=== PATIENT | male | born 1970 | race Caucasian/White ===

== ENCOUNTER 2017-03-25 09:09 | Emergency (ER) | payer BC ==
[~2017-03-25] VITALS: Ht 190.5 cm; Wt 104.5 kg
[2017-03-25 09:10] VITALS: BP 122/74; PULSE 83; RESP 14; TEMP 98.2; O2SAT 99
--- NOTE | 2017-03-25 09:41 | PD ---
HPI Chief Complaint: Back/ Neck Pain or Injury Time Seen by Provider: 09:27 Travel History International Travel<30 days: No Contact w/Intl Traveler<30days: No Traveled to known affect area: No History of Present Illness HPI 46-year-old male presents to the emergency Department with complaint of right lower back pain 3 weeks with worsening last night and this morning. Says his back has been aching for 3 weeks. 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 He weeks ago he also had a fever and diarrhea and was seen and had a CT scan of his abdomen and was told he had some very small kidney stones, but doesn't know which side. He was told they were small enough they would most likely pass on their own if they did pass without any problems. He denies fevers, vomiting, abdominal pain, change in stool, dysuria, hematuria. Denies IV drug use, cancer. Denies paresthesias, loss of sensation , decreased range of motion or decreased strength to bilateral lower exudate. Denies encopresis, incontinence, saddle anesthesias. Denies radiation of pain. Pain is worse with movement. Pain is decreased while at rest. Rates pain 5/ 10. Has not taken any medication or tried any treatments to alleviate his symptoms. No known allergies. Primary care provider is Lorraine Raphael. Denies significant past medical history. Has no other medical complaints. No other modifying factors or associated signs and symptoms. PFSH Past Medical History Hx Anticoagulant Therapy: No Cardiovascular Problems: No Chemotherapy: No Cerebrovascular Accident: No Diabetes: No GERD: Yes Respiratory: No Past Surgical History Hysterectomy: No Tonsillectomy: Yes Social History Alcohol Use: Yes (3-4 times per week 3-4 drinks) Tobacco Use: No Substance Use: No Allergies-Medications (Allergen,Severity, Reaction): Coded Allergies: No Known Allergies (Unverified , 03/25/17) Reported Meds & Prescriptions Reported Meds & Active Scripts Active Robaxin (Methocarbamol) 500 Mg Tab 500 Mg PO QID PRN Ibuprofen 800 Mg Tab 800 Mg PO Q6HR PRN Review of Systems Except as stated in HPI: all other systems reviewed are Neg Physical Exam Narrative GENERAL: Well-nourished, well-developed male patient, in no acute distress; afebrile, nontoxic-appearing SKIN: Warm and dry. HEAD: Atraumatic. Normocephalic. EYES: Pupils equal and round. No scleral icterus. No injection or drainage. ENT: Mucosa pink and moist. Airway patent. NECK: Trachea midline. CARDIOVASCULAR: Regular rate and rhythm. No murmur appreciated. RESPIRATORY: No accessory muscle use. Sounds clear and equal bilaterally. No retractions or tachypnea. GASTROINTESTINAL: Abdomen soft, non-tender, nondistended. Positive bowel sounds. No hepato-splenomegaly, or palpable masses. No guarding. MUSCULOSKELETAL: Bilateral lower extremities supple and non-tense with 2+ pedal pulses and sensory intact; with full range of motion and 5/5 strength. Active dorsiflexion and extension of bilateral feet. Right straight leg raise is positive for low back pain. Ambulatory in room with normal gait. Sitting up in bed at 90. No obvious deformities. No clubbing. No cyanosis. No edema. BACK: No midline point tenderness on palpation of the lumbar or thoracic spine. Tenderness on palpation of right thoracic mid back area. No obvious deformities. NEUROLOGICAL: Awake and alert. Oriented 3. No obvious cranial nerve deficits. Motor grossly within normal limits. Normal speech. Moves all extremities. 5/5 strength to all extremities. Sensory intact. PSYCHIATRIC: Appropriate mood and affect; insight and judgment normal. Data Data Last Documented VS Vital Signs Date Time Temp Pulse Resp B/P (MAP) Pulse Ox O2 Delivery O2 Flow Rate FiO2 03/25/17 09:25 16 03/25/17 09:10 98.2 83 122/74 (90) 99 Orders Orders Ketorolac Inj (Toradol Inj) (03/25/17 09:45) Orphenadrine Inj (Norflex Inj) (03/25/17 09:45) Ed Discharge Order (03/25/17 09:45) [facility] Medical Decision Making Medical Screen Exam Complete: Yes Emergency Medical Condition: Yes Medical Record Reviewed: Yes Differential Diagnosis Back strain, muscle spasm of back, kidney stone Narrative Course 46-year-old male physical exam consistent with possible muscle strain from of Right lower back. He had a CT scan 3 weeks ago and was told he had kidney stones but according to the patient they were small enough that if the past he probably would not feel pain. He does not know what side the kidney stones were on. He has no urinary complaints at this time. He is afebrile and nontoxic-appearing. He denies fever, vomiting. 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 He has a basketball game later on today and a [address] I did discuss labs, urinalysis and repeat CT scan to r/o kidney stones and he declined at this time. I did discuss reasons to return to the emergency department and he verbalized understanding and agreement. I will treat the patient for musculoskeletal back pain. Toradol and Norflex administered in the ER. Ibuprofen and Robaxin prescribed for home. Instructed patient to follow up with primary care provider. Patient verbalizes understanding and agreement with treatment plan. Patient is medically cleared and stable for discharge. Discussed reasons to return to the emergency department. Patient agrees with treatment plan. The patients vital signs are stable and the patient is stable for outpatient follow- up and treatment. Patient discharged home, stable and in no acute distress. Diagnosis Primary Impression: Acute right-sided low back pain Qualified Codes: M54.5 - Low back pain Referrals: Primary Care Physician Patient Instructions: Acute Low Back Pain (ED), General Instructions, Kidney Stones (ED), Low Back Strain (ED) Additional Instructions: Tylenol or ibuprofen as directed and as needed for pain Robaxin as prescribed and as needed for muscle spasms Heating pad and/or ice to affected area to reduce pain Avoid aggravating activities; increase activity as tolerated Follow-up with primary care provider Return to emergency department immediately with worsening of symptoms Med/Other Pt SpecificInfo: Prescription(s) given Scripts Methocarbamol (Robaxin) 500 Mg Tab 500 MG PO QID Y for MUSCLE SPASM, #30 TAB 0 Refills Prov: Josy Toussaint 03/25/17 Ibuprofen (Ibuprofen) 800 Mg Tab 800 MG PO Q6HR Y for PAIN, #30 TAB 0 Refills Prov: Josy Toussaint 03/25/17 Disposition: 01 DISCHARGE HOME Condition: Stable Josy Toussaint Mar 25, 2017 09:41
[2017-03-25] MEDS ORDERED: ROBA500T PO (09:44)
[2017-03-25] MEDS ORDERED: IBUP1TAB7 PO (09:44)
[2017-03-25] MEDS ORDERED: KETOROLAC TROMETHAMINE 60 MG/2 ML (IM) VIAL IM ONE (09:45)
[2017-03-25] MEDS ORDERED: ORPHENADRINE INJ 60 MG/2 ML AMP IM ONE (09:45)
== END 2017-03-25 10:01 | disposition home or self-care (01) ==
LOC: NEPD 09:09
DX: M54.5 Low back pain (principal); Z87.19 Personal history of other diseases of the digestive system; X58.XXXA Exposure to other specified factors, initial encounter; Y99.0 Civilian activity done for income or pay
CPT/HCPCS: 96372; 99284; J1885; J2360